=== PATIENT | male | born 1950 | race Caucasian/White ===

== ENCOUNTER 2021-06-20 12:47 | Outpatient (CLI) | payer MEDICARE, SELFPAY ==
--- NOTE | 2021-06-20 13:51 | ECG_ITS ---
Measurements Intervals [place] Rate: 62 P: CT: 0 QRS: -74 QRSD: 143 T: -4 QT: 413 QTc: 422 Interpretive Statements ATRIAL FIBRILLATION MARKED LEFT AXIS DEVIATION [QRS AXIS < -30] RIGHT BUNDLE BRANCH BLOCK [120+ ms QRS DURATION, UPRIGHT V1, 40+ ms S IN I/aVL/V4/V5/V6] NO PREVIOUS ECG AVAILABLE FOR COMPARISON Electronically Signed On 06-20-2021 15:52:13 [employer] by Viktor Singh M.D.
[2021-06-20 14:28] LABS: Hematocrit 44.7 % (42.0-52.0); Hemoglobin 14.7 g/dL (14.0-18.0)
[2021-06-20 14:36] LABS: Hemoglobin A1C 7.7 % (<5.7)
[2021-06-20 14:41] LABS: Anion Gap 6 mmol/L (8-16); Blood Urea Nitrogen 12 mg/dL (9-20); Calcium 8.4 mg/dL (8.4-10.2); Carbon Dioxide 32 mmol/L (22-30); Chloride 100 mmol/L (98-107); Estimated Glomerular Filt Rate > 60; Glucose 162 mg/dL (65-110); Potassium 3.9 mmol/L (3.4-5.0); Sodium 138 mmol/L (137-145)
== END 2021-06-20 12:48 | disposition home or self-care (01) ==
PROVIDERS: Anesthesiology; PCP Family Medicine; Visit Provider Urology
DX: N52.9 Male erectile dysfunction, unspecified (principal); I10 Essential (primary) hypertension; E11.9 Type 2 diabetes mellitus without complications; Z01.818 Encounter for other preprocedural examination; I45.10 Unspecified right bundle-branch block
CPT/HCPCS: 36415; 80048; 83036; 85014; 85018; 87086; 87147; 87181; 87186; 93005

== ENCOUNTER 2021-07-13 01:29 | Day surgery (SDC) | payer MEDICARE, SELFPAY ==
[2021-06-20 13:05] VITALS: BMI 61.0
[2021-06-20 13:39] VITALS: BP 143/64; PULSE 71; RESP 20; TEMP 36.6; O2SAT 94
--- NOTE | 2021-06-20 14:17 | PC.NURSE ---
Addendum entered by Tessie Sharif RN 06/20/21 14:19: ARRIVE AT 10 AM Original Note: Report to the Outpatient Waiting Room, entrance under the green pavilion located off [facility], at [id number] on date _07/13/21 . OR Time: __1200 . - You and your visitor will be asked a series of questions to screen for COVID 19 for your protection. - A mask is required within the hospital. Preoperative COVID Testing Requirements: No COVID Test needed if: (proof is required; if not received patient will have Rapid Test prior to entry) - Patient has received COVID Vaccine at least 14 days prior to procedure date or - Patient has positive COVID test result within last 90 days of surgery date. COVID Test needed if above criteria is not met If not COVID vaccinated a COVID test must be conducted within 72 hours of surgery and patient is asked to isolate self from time of testing until procedure. You will go to the [facility] for your COVID testing. The [facility] is located at the corner of [address] [facility]. You will only be called if COVID results are positive and your surgeon may reschedule your elective surgery date. Patients may have clear liquids (water, carbonated beverages, clear teas, apple juice) until 3 hours prior to surgery with a maximum of 20 ounces. - No food from midnight until time of surgery - Infants may have breast milk until 4 hours before surgery, formula 6 hours prior to surgery. - Children will be allowed to drink immediately following surgery. If applicable, please bring a bottle or sippy cup to assist with drinking. Juice, water, soda, and popsicles are readily available. For infants on formula, please bring formula the day of surgery. Pacifiers are allowed. Take the following medications with a SIP of water the morning of surgery: __INHALER,AMLODIPINE,GABAPENTIN METOPROLOL Medications to discontinue per physician ____ALL VITAMINS AND SUPPLEMENTS 3 DAYS PRE OP Date to take last dose__07/09/21 Please no make-up, nail lithuanian, hairspray, perfume, deodorant, or body powder the day of surgery. No jewelry (including any body piercings) or valuables the day of surgery, leave them at home. Please take a shower or bath the night before, or the morning of, surgery with an antibacterial soap. Wear comfortable, loose fitting clothing. Children are encouraged to wear pajamas. - Jewelry must be removed prior to entering the operating room. Rings and piercings that are not removed may be cut off. - The hospital will not accept responsibility for valuables. - Please leave all valuables, including medications, at home the day of surgery. If you are going home after surgery, a licensed otr van cdl truck driver must drive you home. - NO public transportation without another adult. - We recommend that an adult stay with you for 24 hours following discharge. - We also recommend that you do not drive, make important decision, drink alcoholic beverages, or take any drugs that were not prescribed by your health care provider for at least 24 hours after your discharge time. For Pediatric surgeries, we recommend two adults accompany the child home (only one inside the building at this time). One visitor will be allowed to accompany the patient into the hospital. Patients visitor will be instructed to remain with patient at all times or leave the building. We will allow the visitor to come back to the postoperative area when patient is ready. Follow any additional instructions given to you from your surgeon. Telephone instructions given to _PATIENT AND WIFE and asked if any additional questions and then verbalized understanding. Patient advised to call surgeon office or pre surgery nurse liaison [phone] if any additional questions.
--- NOTE | 2021-07-12 14:28 | WPDANESEPPF ---
Anes - Initial Pre Proc Eval Procedure: Operation Date: 07/13/21 12:00 Proposed Procedures p Left Hydrocelectomy - John Goetz MD Date/Time: 07/12/21 14:28 Surgeon: John Goetz MD Pre Op Diagnosis: erectile dysfunction, left hydrocele Patient Data Age: 71 Gender: M Height: 1.77 m Weight: 190 kg Last Vital Signs Temp 36.6 C 06/20/21 13:39 Pulse 71 06/20/21 13:39 Resp 20 06/20/21 13:39 BP 143/64 H 06/20/21 13:39 Pulse Ox 94 06/20/21 13:39 Allergies Allergy/AdvReac Type Severity Reaction Status Date / Time No Known Allergies Allergy Verified 06/20/21 13:07 Home Medications Medication Instructions Recorded Confirmed Type albuterol sulfate 2.5 mg INHALATION QID 06/20/21 06/20/21 History albuterol sulfate [ProAir HFA] 2 puff INHALATION QID PRN 06/20/21 06/20/21 History amlodipine 10 mg PO DAILY 06/20/21 06/20/21 History arginine (L-arginine) 1,000 mg PO DAILY 06/20/21 06/20/21 History aspirin [Adult Low Dose Aspirin] 81 mg PO DAILY 06/20/21 06/20/21 History atorvastatin 10 mg PO HS 06/20/21 06/20/21 History bumetanide 2 mg PO DAILY 06/20/21 06/20/21 History khowpcpguhp-mcipqmtpz-aposlduf 1 inh INHALATION DAILY 06/20/21 06/20/21 History [Trelegy Ellipta] gabapentin 300 mg PO DAILY 06/20/21 06/20/21 History glucosamine-chondroitin 2 tablet PO DAILY 06/20/21 06/20/21 History ipratropium-albuterol 3 ml INHALATION QID PRN 06/20/21 06/20/21 History metformin 850 mg PO BID 06/20/21 06/20/21 History metoprolol succinate 50 mg PO DAILY 06/20/21 06/20/21 History potassium chloride 10 meq PO DAILY 06/20/21 06/20/21 History quetiapine 25 mg PO HS 06/20/21 06/20/21 History sildenafil 100 mg PO DAILY PRN 06/20/21 06/20/21 History spironolactone 25 mg PO DAILY 06/20/21 06/20/21 History Patient hx anesthesia problems: none Family hx anesthesia problems: none Results Review: All pre-operative results and documents have been reviewed as part of the pre-operative evaluation. [facility] Past Medical History Medical History (Updated 07/12/21 @ 14:31 by Alfredo Alcocer MD) Arthritis Atrial fibrillation s/p 2018 ablation COPD (chronic obstructive pulmonary disease) Diabetes Emphysema of lung HTN (hypertension) Hypercholesterolemia Morbid obesity with BMI of 60.0-69.9, adult On home O2 4L nc [place] on CPAP Social History Social History Smoking packs per day: 2 Smoking cigarettes per day: 40.0 Years smoked: 45 Smoking pack-years: 90.00 Smoking status: Former smoker Tobacco type: cigarettes Smoking end date: 12/06/14 Alcohol intake: current Alcohol use details: ONE DRINK PER MONTH Living arrangements: with family Spiritual care concerns: No Anes - Eval Final PreProcedure Day of Procedure 07/12/21 14:28 Patient weight: super morbidly obese Heart: regular rate and rhythm Lungs: wheezes Airway: Mallampati scale class IV Neurological: alert and oriented Last oral intake: >/= 8 hours ASA classification: IV Emergent: no Anesthetic plan: proceed Anesthesia type and monitoring: general LMA Results Review: All pre-operative results and documents have been reviewed as part of the pre-operative evaluation. Informed Consent: The patient's anesthetic plan and its attendant risks and benefits were discussed with the patient/family/POA. Questions were solicited and answers provided to the satisfaction of the patient/family/POA.
[2021-07-13] MEDS: LACTATED RINGERS 1,000 ML 30 ML IV CONT (10:45)
[2021-07-13] MEDS: ACETAMINOPHEN 500 MG TABLET 1000 MG PO (10:45)
[2021-07-13 11:09] VITALS: BP 134/51; PULSE 69; RESP 18; TEMP 37.3; O2SAT 90
--- NOTE | 2021-07-13 12:07 | WPDHPUPDATE1 ---
History and Physical Update Update Date/Time: 07/13/21 12:07 History and Physical has been reviewed, including an updated exam of the patient. There are NO changes in the patient's condition. - plan left hydrocelectomy, possible orchiopexy Risks, benefits, and alternatives have been discussed and questions answered. Patient agrees to proceed with procedure.
[2021-07-13] MEDS: ceFAZolin 3 GM/D5W 100 ML 100 ML IVPB (12:36)
[2021-07-13] MEDS: BUPIVACAINE HCL 0.5% PF 30 ML VIAL INFILTRATE (12:36)
--- NOTE | 2021-07-13 13:28 | P.OP_ITS ---
Procedure Note - Detailed Date of Procedure 07/13/21 Pre-op Diagnosis left hydrocele Post-op Diagnosis Same Procedure Performed Left hydrocelectomy Surgeon John Goetz MD Anesthesia General Findings Left hydrocele, approximately 200cc Description of Procedure Informed consent was obtained. Patient in the operating. He was given preoperative IV antibiotics. He was induced anesthesia. He was shaved, prepped and draped. A 5cm scrotal midline incision was made. We bluntly dissected down to the left hemiscrotum where the hydrocele was carefully dissected away from surrounding structures. With an open the hydrocele sac with return of [id number] of straw-colored fluid. The testicle was normal in appearance with a normal epididymis. We then excised a portion of the hydrocele sac from both sides. Edges were oversewn with 2-0 Vicryl suture. We took great care not to injure the testicle or its blood supply. This point the testicle was not mobile, therefore elected not to perform a orchiopexy. The testicle was returned to its orthotopic position. We irrigated copiously hemostasis was achieved with electrocautery. We then closed the dartos layer with 2-0 Vicryl suture we closed deep dermal layer with 3-0 Vicryl suture. Skin was re approximated with a 3-0 chromic horizontal mattress suture. A compressive dressing was placed. Patient was taken to PACU in stable condition Estimated Blood Loss 50 Drains No Packing No Pathology Yes Complications No immediate complications Condition Stable Disposition PACU
[2021-07-13 13:39] VITALS: BP 148/83; PULSE 67; RESP 21; TEMP 36.7; O2SAT 88
[2021-07-13 13:45] VITALS: BP 156/71; PULSE 58; RESP 13; O2SAT 94
[2021-07-13 14:00] VITALS: BP 145/66; PULSE 59; RESP 18; O2SAT 92
[2021-07-13 14:15] VITALS: BP 142/58; PULSE 55; RESP 20
[2021-07-13 14:50] VITALS: BP 130/53; PULSE 48; RESP 16
== END 2021-07-13 15:21 | disposition home or self-care (01) ==
PROVIDERS: PCP Family Medicine; Visit Provider Urology
PROC: (CPT 55040; principal; 2021-07-13 12:00)
DX: N43.3 Hydrocele, unspecified (principal); N52.9 Male erectile dysfunction, unspecified; J44.9 Chronic obstructive pulmonary disease, unspecified; E11.9 Type 2 diabetes mellitus without complications; I10 Essential (primary) hypertension; E78.00 Pure hypercholesterolemia, unspecified; G47.33 Obstructive sleep apnea (adult) (pediatric); E66.01 Morbid (severe) obesity due to excess calories; Z68.44 Body mass index [BMI] 60.0-69.9, adult; Z87.891 Personal history of nicotine dependence; Z79.51 Long term (current) use of inhaled steroids; Z79.82 Long term (current) use of aspirin; Z79.84 Long term (current) use of oral hypoglycemic drugs
CPT/HCPCS: 55040; 36415; 80048; 83036; 85014; 85018; 87086; 87147; 87181; 87186; 88302; 93005; A9270; J0330; J0690; J1100; J2405; J2704; J3010; J7120